=== PATIENT | male | born 1980 | race Caucasian/White ===

== ENCOUNTER 2020-11-02 15:24 | Emergency (ER) | payer SELFPAY ==
[2020-11-02 15:45] VITALS: BP 146/101; PULSE 74; RESP 16; TEMP 36.6; O2SAT 99; BMI 33.9
--- NOTE | 2020-11-02 16:05 | ED_ITS ---
HPI - Abdominal Pain General: Chief Complaint: Abdominal Pain Stated Complaint: Abd pain Time Seen by Provider: 11/02/20 16:00 History of Present Illness: HPI narrative: The patient is a 40-year-old male with no previous medical history who comes to the ER complaining of abdominal pain in the left lower quadrant and left flank pain. He said it started with l eft flank pain last night and went away and this morning started again with left lower quadrant and left flank pain radiating between each other. No history of UTI or stones. Normal bowel movement today and he is passing gas. No urinary symptoms other than dark yellowish urine. No previous surgeries or allergies. MD elicited complaint: abdominal pain and flank pain Onset (ago): day(s) (1) Pain Consistency: intermittent Location: LLQ and L flank Severity: severe Quality: cramping and sharp Relieving factors: nothing Associated Symptoms: Reports nausea; Denies change in bowel habits, dysuria, excessive flatus, fever(s), heartburn, hematochezia, hematuria, fecal incontinence, loose stools, melena and vomiting Review of Systems General: Reports: 10 or more systems reviewed and unremarkable except in HPI and below Const: Denies: fever(s) Eyes: Denies: change in vision, blurry vision or eye redness ENMT: Denies: throat pain, swelling of lips/tongue, ear or mastoid pain or nasal congestion Card: Denies: chest pain, palpitations, irregular heart rhythm, edema, dyspnea on exertion or orthopnea Resp: Denies: dyspnea, productive cough or non-productive cough GI: Reports: abdominal pain and nausea; Denies: vomiting, heartburn, excessive flatus, fecal incontinence, change in bowel habits, hematochezia or melena : Reports: flank pain; Denies: dysuria or hematuria Musc: Denies: neck pain, back pain, extremity pain, joint pain, joint redness, limited range of motion or muscle weakness Skin/Breast: Denies: rash, pruritus, erythema, skin pain or skin tenderness Neuro: Denies: headache(s), numbness in extremities, weakness in extremities, sensory changes, difficulty walking, dizziness, confusion or Slurred speech present Psych: Denies: anxiety or depression Endo: Denies: polyuria All/Imm: Denies: urticaria, throat swelling or tongue swelling Physical Exam Const: COMMON NORMALS: no acute distress, average body habitus, patient oriented x3, no limitations, healthy appearing, alert and well nourished GENERAL APPEARANCE: cooperative, comfortable, well kempt and well developed ORIENTATION/CONSCIOUSNESS: Yes awake, Yes oriented to person, Yes oriented to place and Yes oriented to time HENMT: COMMON NORMALS: normocephalic, external ears normal and Normal external nose present HEAD & SCALP: normal to inspection and normocephalic NOSE: Normal external nose present EXTERNAL EAR: Yes external ears normal MOUTH: Normal oral and palatal mucosa present THROAT: posterior oropharynx normal Eye: COMMON NORMALS: Equal, round and reactive pupils present and EOMs intact bilaterally GENERAL EYE: appearance normal, both eyes and all related structures PUPIL: Yes Equal, round and reactive pupils present Neck/C-Spine: COMMON NORMALS: full ROM, no lymphadenopathy, no meningeal signs and no JVD GENERAL: Yes normal visual inspection Lymph: LYMPHATIC: no lymphadenopathy noted Chest: COMMONS NORMALS: normal inspection of the chest and normal palpation of entire chest wall Resp: COMMON NORMALS: normal respiratory effort, No retractions, No use of accessory muscles, clear to auscultation bilaterally and percussion normal EFFORT & INSPECTION: Yes able to speak in complete sentences AUSCULTATION: clear to auscultation bilaterally PERCUSSION: percussion normal Cardio: COMMON NORMALS: no JVD, regular rate, regular rhythm, S1 normal heart sound present, S2 normal heart sound present and Peripheral pulses 2+ throughout RATE: regular rate RHYTHM: regular rhythm HEART SOUNDS: S1 normal heart sound present and S2 normal heart sound present PERIPHERAL PULSES: Peripheral pulses 2+ throughout GI: COMMON NORMALS: Normal to inspection, nondistended, normoactive bowel so unds present, Soft to palpation and no masses INSPECTION: Yes normal to inspection PALPATION: Yes Soft to palpation and Yes Tenderness to palpation present (GI) Details: [facility] GI image (male): 1. Left lower quadrant pain and left flank pain also radiating down that track. : BLADDER/KIDNEY EXAM: Yes CVA tenderness on the left Back/Pelvis: COMMON NORMALS: thoracic and lumbar spine normal to inspection, no thoracic nor lumbar tenderness and thoraco-lumbar ROM normal GENERAL BACK: Yes CVA tenderness Extremity: COMMON NORMALS: normal to inspection, full ROM, capillary refill normal, no joint enlargement and no pedal edema GENERAL: Yes normal exam except as noted Neuro: COMMON NORMALS: patient oriented x3, CN's II-XII intact bilaterally, moves all extremities, no focal motor deficits, no sensory deficits noted and gait normal SENSORIUM/ORIENTATION: Yes alert, Yes oriented to person, Yes oriented to place and Yes oriented to time MENINGEAL SIGNS: Yes no meningeal signs Psych: COMMON NORMALS: mental status grossly normal, Normal thought process present, cooperative, normal affect and speech normal APPEARANCE: Yes well kempt ATTITUDE: Yes calm SPEECH: Yes normal speech THOUGHT PROCESS: Normal thought process present Skin: COMMON NORMALS: no rashes or lesions noted GENERAL SKIN EXAM: no rashes or lesions noted Course Vital Signs: Vital signs: Vital Signs Temperature 97.9 F 11/02/20 15:45 Pulse Rate 102 H 11/02/20 18:20 Respiratory Rate 18 11/02/20 18:20 Blood Pressure 146/101 11/02/20 18:20 Pulse Oximetry 98 11/02/20 18:20 MDM - Abdominal Pain MDM Narrative: Medical decision making narrative: The patient has a 4 to 5 mm left proximal ureter stone. This is his first he has ever had. Gave him a lecture about kidney stones in general and how the course of his disease should go. Gave him Flomax and pain control while in the ED. We will discharge him with Flomax and hydrocodone. Do not mix with drugs, alcohol, nor operate machinery while taking this medication. Follow-up with urology early next week and also set up with primary care physician. I have placed a case management referral to help this. Lab Data: Labs: Lab Results 11/02/20 11/02/20 11/02/20 Range/Units 16:10 16:10 16:10 WBC 12.3 H (4.0-10.0) 10^3/ uL RBC 5.15 (4.1-5.3) 10^6/u L Hgb 15.2 (11.7-16.6) g/dL Hct 46.0 (42.0-52.0) % MCV 89.3 (80-94) fL MCH 29.5 (28.0-34.0) pg MCHC 33.0 (30.0-36.0) g/dL RDW 12.9 (12.1-15.1) % Plt Count 427 H (130-400) 10^3/c mm MPV 9.6 (7.4-10.4) fL Neut % (Auto) 76.0 % Lymph % (Auto) 17.3 % Newberry % (Auto) 5.5 % Eos % (Auto) 0.5 % Baso % (Auto) 0.5 % Neut # (Auto) 9.34 H (1.8-7.7) 10^3/u L Lymph # (Auto) 2.1 (0.8-4.8) 10^3/u L Newberry # (Auto) 0.7 (0.2-0.9) 10^3/u L Eos # (Auto) 0.1 (0.0-0.8) 10^3/u L Baso # (Auto) 0.1 (0.0-0.1) 10^3/u L Nucleated RBC % (a uto) 0 % Nucleated RBCs # 0.0 /100WBC Sodium 139 (136-145) mmol/L Potassium 4.0 (3.5-5.1) mmol/L Chloride 103 (98-107) mmol/L Carbon Dioxide 24 (22-29) mmol/L Anion Gap 16.0 (5-19) BUN 8 (6-20) mg/dL Creatinine 1.1 (0.7-1.2) mg/dL GFR Calculation 74.5 L (90-130) mL/min Glucose 143 H (65-115) mg/dL Calculated Osmolal ity 289 (285-295) mOsm/k g Lactate 0.9 (0.5-2.2) mmol/L Calcium 9.0 (8.5-10.5) mg/dL Total Bilirubin 0.8 (0.15-1.2) mg/dL AST 20 (0-40) U/L ALT 32 (0-41) U/L Alkaline Phosphata se 131 H (40-130) IU/L Total Protein 7.7 (6.6-8.7) g/dL Albumin 4.6 (3.5-5.2) g/dL Globulin 3.1 (1.3-4.6) g/dL Lipase 16 (13-60) U/L Urine Color (Yellow) Urine Appearance (CLEAR) Urine pH (5-7) Ur Specific Gravit y (1.005-1.030) Urine Protein (Negative) Urine Glucose (UA) (Normal) Urine Ketones (Negative) Urine Blood (Negative) Urine Nitrate (Negative) Urine Bilirubin (Negative) Urine Urobilinogen (Negative) mg/dL Ur Leukocyte Abbey ase (Negative) Urine RBC (0-2) /hpf Urine WBC (0-5) /hpf Ur Squamous Epith Cells (0-5) /hpf Amorphous Sediment Urine Bacteria (NONE) /hpf Urine Mucus /hpf 11/02/20 Range/Units 16:10 WBC (4.0-10.0) 10^3/ uL RBC (4.1-5.3) 10^6/u L Hgb (11.7-16.6) g/dL Hct (42.0-52.0) % MCV (80-94) fL MCH (28.0-34.0) pg MCHC (30.0-36.0) g/dL RDW (12.1-15.1) % Plt Count (130-400) 10^3/c mm MPV (7.4-10.4) fL Neut % (Auto) % Lymph % (Auto) % Newberry % (Auto) % Eos % (Auto) % Baso % (Auto) % Neut # (Auto) (1.8-7.7) 10^3/u L Lymph # (Auto) (0.8-4.8) 10^3/u L Newberry # (Auto) (0.2-0.9) 10^3/u L Eos # (Auto) (0.0-0.8) 10^3/u L Baso # (Auto) (0.0-0.1) 10^3/u L Nucleated RBC % (a uto) % Nucleated RBCs # /100WBC Sodium (136-145) mmol/L Potassium (3.5-5.1) mmol/L Chloride (98-107) mmol/L Carbon Dioxide (22-29) mmol/L Anion Gap (5-19) BUN (6-20) mg/dL Creatinine (0.7-1.2) mg/dL GFR Calculation (90-130) mL/min Glucose (65-115) mg/dL Calculated Osmolal ity (285-295) mOsm/k g Lactate (0.5-2.2) mmol/L Calcium (8.5-10.5) mg/dL Total Bilirubin (0.15-1.2) mg/dL AST (0-40) U/L ALT (0-41) U/L Alkaline Phosphata se (40-130) IU/L Total Protein (6.6-8.7) g/dL Albumin (3.5-5.2) g/dL Globulin (1.3-4.6) g/dL Lipase (13-60) U/L Urine Color Rosey (Yellow) Urine Appearance Cloudy (CLEAR) Urine pH 6.5 (5-7) Ur Specific Gravit y 1.020 (1.005-1.030) Urine Protein 1+ H (Negative) Urine Glucose (UA) Norm (Normal) Urine Ketones 1+ H (Negative) Urine Blood 3+ H (Negative) Urine Nitrate Negative (Negative) Urine Bilirubin 1+ H (Negative) Urine Urobilinogen 8 H (Negative) mg/dL Ur Leukocyte Abbey ase Trace H (Negative) Urine RBC Too numerous to c nt H (0-2) /hpf Urine WBC 0-4 H (0-5) /hpf Ur Squamous Epith Cells Rare (0-5) /hpf Amorphous Sediment Not Reportable Urine Bacteria 2+ H (NONE) /hpf Urine Mucus 2+ /hpf Discharge Plan Discharge Patient Disposition: Home Clinical Impression: Ureterolithiasis Condition: Stable Prescriptions: New Flomax 0.4 mg capsule 0.4 mg PO DAILY Qty: 10 RF: 0 hydrocodone-acetaminophen 5-325 mg tablet 1 tab PO Q6H PRN (Reason: pain) Qty: 18 RF: 0 Discharge Orders: Discharge ED (Routine); Ordered 11/02/20 Ordered By: Zachary Brooke Discharge Diet: Advance as tolerated Discharge Activity: Resume usual activity Patient Instructions: Kidney Stones (ED), Opioid Safety Activity Restrictions/Additional Instructions: 1. Kidney stone: You have a 4 to 5 mm kidney stone just entering your left ureter. It is going to scratch its way down and should pass on its own. Please drink lots of fluids to help it pass and take the pain medication to help control your pain. I have placed a case management referral to get you set up with a primary care and a urologist. Please see them early next week if possible. Also take your blood pressure at home as it has been elevated here which is likely from your pain. Take the pain medication only for severe pain and do not mix with drugs, alcohol, nor operate machinery while using this medication. Coding Level of Care Code ED Decorating Consultant for [place] Fwd Exam Comprehensive
[2020-11-02] MEDS: sodium chloride 0.9% 1,000 ML 999 ML IV (16:18)
[2020-11-02] MEDS: morphine 4 mg/mL SDV 1 mL 2 MG IVP (16:19)
[2020-11-02] MEDS: ondansetron 2 mg/ML SDV 2 mL 4 MG IVP (16:19)
[2020-11-02 16:28] LABS: Basophils # 0.1 10^3/uL (0.0-0.1); Basophils % 0.5 %; Eosinophils # 0.1 10^3/uL (0.0-0.8); Eosinophils % 0.5 %; Hemoglobin 15.2 g/dL (11.7-16.6); Lymphocytes # 2.1 10^3/uL (0.8-4.8); Lymphocytes % 17.3 %; Mean Corpuscular Hemoglobin 29.5 pg (28.0-34.0); Mean Corpuscular Volume 89.3 fL (80-94); Mean Platelet Volume 9.6 fL (7.4-10.4); Monocytes # 0.7 10^3/uL (0.2-0.9); Monocytes % 5.5 %; Neutrophils # 9.34 10^3/uL (1.8-7.7); Nucleated Red Blood Cells % 0 %; Platelet Count 427 10^3/cmm (130-400); Red Blood Count 5.15 10^6/uL (4.1-5.3); Red Cell Distribution Width 12.9 % (12.1-15.1); White Blood Count 12.3 10^3/uL (4.0-10.0)
--- NOTE | 2020-11-02 16:28 | CTR_ITS ---
PROCEDURE INFORMATION: Exam: CT Abdomen And Pelvis With Contrast Exam date and time: 11/02/2020 4:53 PM Age: 40 years old Clinical indication: Abdominal pain; Flank; Left; Additional info: Llq/ left flank pain TECHNIQUE: Imaging protocol: Computed tomography of the abdomen and pelvis with contrast. Radiation optimization: All CT scans at this facility use at least one of these dose optimization techniques: automated exposure control; mA and/or kV adjustment per patient size (includes targeted exams where dose is matched to clinical indication); or iterative reconstruction. Contrast material: OMNI 300; Contrast volume: 95 ml; Contrast route: INTRAVENOUS (IV); COMPARISON: No relevant prior studies available. RADIATION DOSE METRICS: Total DLP (mGy-cm): 1870.45 FINDINGS: Liver: Normal. No mass. Gallbladder and bile ducts: Normal. No calcified stones. No ductal dilation. Pancreas: Normal. No ductal dilation. Spleen: Normal. No splenomegaly. Adrenal glands: Normal. No mass. Kidneys and ureters: Calcified stone in the proximal left ureter measuring 4-5 mm diameter. Proximal hydronephrosis. Additional tiny 1 mm nonobstructing lower pole left side kidney stone. Incidental finding of small simple right renal cortical cyst in the lower pole measuring 1 cm. Stomach and bowel: Unremarkable. No obstruction. No mucosal thickening. Appendix: No evidence of appendicitis. Intraperitoneal space: Unremarkable. No free air. No significant fluid collection. Vasculature: Unremarkable. No abdominal aortic aneurysm. Lymph nodes: Unremarkable. No enlarged lymph nodes. Urinary bladder: Unremarkable as visualized. Reproductive: Unremarkable as visualized. Bones/joints: Unremarkable. No acute fracture. Moderate severity disc disease at L5-S1. Soft tissues: Unremarkable. CT/CT abdomen pelvis w con* [id number] IMPRESSION: Left side proximal ureterolithiasis causing obstructive uropathy changes. COMMENTS: Consistent with the [employer]'s Incidental Findings Committee white paper (J Am Monica Radiol 2018): Any incidental renal lesion less than 1 cm or classified as too small to characterize, or any incidental cystic renal lesion characterized as simple-appearing, is likely benign. No follow-up imaging is recommended for these lesions per consensus recommendations based on imaging criteria. Radiation Dose CTDIVOL = (mGy): DLP = 1870.45 (mGy-cm)
[2020-11-02 16:39] LABS: Protein Urine 1+ (Negative); Urine Appearance Cloudy (CLEAR); Urine Color Amber (Yellow); pH Urine 6.5 (5-7)
[2020-11-02 16:40] LABS: Add Urine Microscopic? YES; Bilirubin Urine 1+ (Negative); Blood Urine 3+ (Negative); Glucose Urine UA Norm (Normal); Ketones Urine 1+ (Negative); Leukocyte Esterase Urine Trace (Negative); Nitrate Urine Negative (Negative); Urobilinogen Urine 8 mg/dL (Negative)
[2020-11-02 16:41] LABS: RBC Urine TOO NUMEROUS TO CNT /hpf (0-2)
[2020-11-02 16:42] LABS: Bacteria Urine 2+ /hpf; Mucus Urine 2+ /hpf; Squamous Epithelial Cell Urine RARE /hpf (0-5); WBC Urine 0-4 /hpf (0-5)
[2020-11-02 16:43] LABS: Add Urine Culture? Yes
[2020-11-02 16:47] LABS: Lactate (Lactic Acid level) 0.9 mmol/L (0.5-2.2)
[2020-11-02 16:48] LABS: Alanine Aminotransferase 32 U/L (0-41); Albumin Level 4.6 g/dL (3.5-5.2); Alkaline Phosphatase 131 IU/L (40-130); Aspartate Amino Transferase 20 U/L (0-40); Blood Urea Nitrogen 8 mg/dL (6-20); Carbon Dioxide 24 mmol/L (22-29); Chloride 103 mmol/L (98-107); Globulin 3.1 g/dL (1.3-4.6); Glomerular Filtration Rate 74.5 mL/min (90-130); Glucose 143 mg/dL (65-115); Lipase 16 U/L (13-60); Osmolality Calculated 289 mOsm/kg (285-295); Sodium 139 mmol/L (136-145); Total Bilirubin 0.8 mg/dL (0.15-1.2); Total Protein 7.7 g/dL (6.6-8.7)
[2020-11-02] MEDS: iohexol 300 mg/mL 100 mL Btl IV (17:11)
[2020-11-02 17:38] VITALS: BP 148/105; PULSE 100; RESP 16; O2SAT 97
[2020-11-02 18:20] VITALS: BP 146/101; PULSE 102; RESP 18; O2SAT 98
[2020-11-02] MEDS: HYDROcodone-acetaminophen 5-325 mg Tablet 1 TAB PO (18:34)
[2020-11-02] MEDS: tamsulosin 0.4 mg Capsule PO (18:34)
--- NOTE | 2020-11-04 09:41 | DCPLANNER ---
data manager had message to schedule a follow up appointment for patient with Dr. Gagnon for mariama. data manager called the office of Dr. Gagnon, spoke with Samina, gave clinic patients information. data manager was told that patients information would be printed and reviewed. Clinic will call patient with appointment information. Clinic will call patient with appointment information. data manager also had message to speak with patient about getting established with a primary care physician. data manager spoke with patient, he stated that he would like help in getting established with a primary care, but he does not have insurance and he can not afford to go to a doctor. data manager offered to mail patient both of the financial services internship applications for him to fill and turn in, he stated that he would like the applications. data manager will mail patient both of the applications for financial services internship for patient to fill out and turn in.
--- NOTE | 2020-11-06 13:58 | DCPLANNER ---
Patient had a follow up appointment scheduled for 11.05.[address] Gagnon - patient did not attend appointment.
== END 2020-11-02 18:40 | disposition home or self-care (01) ==
PROVIDERS: Emergency Provider Family Medicine
DX: N20.1 Calculus of ureter (principal)
CPT/HCPCS: 74177; 80053; 81001; 83605; 83690; 85025; 87086; 96361; 96374; 96375; 99283; J2270; J2405; J7030; Q9967

== ENCOUNTER 2022-03-11 08:33 | Emergency (ER) | payer SELFPAY ==
--- NOTE | 2022-03-11 08:41 | ED_ITS ---
HPI - Dental/Oral General: Chief complaint: General Medical Stated complaint: Left side jaw swollen Time Seen by Provider: 03/11/22 08:40 Source: patient Mode of arrival: ambulatory History of Present Illness: 41-year-old male presents emergency room with left mandibular pain. He has significant dental caries and has not been able to see a dentist. He has had the pain for the last couple of weeks now the last 2 days he has had increasing swelling no difficulty speaking swallowing. He denies any painful swallowing or difficulty breathing. Teeth map: 1. Onset (ago): week(s) (2) Duration: constant Severity: moderate Relieving factors: nothing Exacerbating factors: nothing Context: history of dental caries Associated symptoms: Reports gum swelling; Denies ear or mastoid pain, fever(s), odynophagia, sore throat or tongue swelling Treatment prior to arrival: none Review of Systems Const: Denies: fever(s), chills, fatigue or malaise ENMT: Reports: mouth pain and dental pain; Denies: throat pain, odynophagia, hoarseness or ear or mastoid pain Card: Denies: chest pain Resp: Denies: dyspnea GI: Denies: abdominal pain, nausea or vomiting : Denies: dysuria, urinary frequency or urinary urgency Skin/Breast: Denies: rash or pruritus All/Imm: Denies: tongue swelling Physical Exam Const: COMMON NORMALS: no acute distress GENERAL APPEARANCE: cooperative and comfortable ORIENTATION/CONSCIOUSNESS: Yes awake, Yes oriented to person, Yes oriented to place and Yes oriented to time HENMT: COMMON NORMALS: normocephalic, atraumatic and hearing grossly normal bilaterally HEAD & SCALP: normocephalic and atraumatic TEETH & GINGIVA: Yes caries and Yes gingiva abnormal edematous and tender TEETH & GINGIVA IMAGES: 1. Neck/C-Spine: COMMON NORMALS: no lymphadenopathy Resp: COMMON NORMALS: normal respiratory effort, No retractions, No use of accessory muscles and clear to auscultation bilaterally AUSCULTATION: clear to auscultation bilaterally Cardio: COMMON NORMALS: regular rate, regular rhythm and No murmurs present (Cardio) RATE: regular rate RHYTHM: regular rhythm Extremity: COMMON NORMALS: normal to inspection, capillary refill normal, no clubbing, cyanosis or edema, no calf tenderness and no pedal edema Neuro: SENSORIUM/ORIENTATION: Yes oriented to person, Yes oriented to place and Yes oriented to time Skin: COMMON NORMALS: no rashes or lesions noted GENERAL SKIN EXAM: no rashes or lesions noted Course Vital Signs: Vital signs: Vital Signs Temperature 97.6 F 03/11/22 08:45 Pulse Rate 120 H 03/11/22 08:45 Respiratory Rate 15 03/11/22 08:45 Blood Pressure 131/83 03/11/22 08:45 Pulse Oximetry 99 03/11/22 08:45 Oxygen Delivery Me thod 03/11/22 08:45 MDM - Dental/Oral Medical Decision Making Encouraged to follow-up with a dentist as soon as he is able Discharge Plan Discharge Patient Disposition: Home Clinical Impression: Dental caries Condition: Stable Prescriptions: New tramadol 50 mg tablet 50 mg PO Q6H PRN (Reason: pain) Qty: 10 0RF amoxicillin-pot clavulanate 875-125 mg tablet 1 tab PO BID 10 Days Qty: 20 0RF No Action Flomax 0.4 mg capsule 0.4 mg PO DAILY Qty: 10 0RF hydrocodone-acetaminophen 5-325 mg tablet 1 tab PO Q6H PRN (Reason: pain) Qty: 18 0RF Discharge Orders: Discharge ED (Routine); Ordered 03/11/22 Ordered By: Tavo Hernandez Discharge Diet: Soft Mechanical Discharge Activity: Increase activity as tolerated Patient Instructions: Opioid Safety, Pain Management Activity Restrictions/Additional Instructions: Follow-up with a dentist as soon as you are able. Coding Level of Care Code ED Outbound Telemarketing Representative for Buck Hernandez
[2022-03-11 08:45] VITALS: BP 131/83; PULSE 120; RESP 15; TEMP 36.4; O2SAT 99; BMI 33.9
== END 2022-03-11 09:06 | disposition home or self-care (01) ==
PROVIDERS: Emergency Provider Family Medicine; PCP Urology
DX: K02.9 Dental caries, unspecified (principal)
CPT/HCPCS: 99283